=== PATIENT | male | born 1945 | race Caucasian/White ===

== ENCOUNTER 2016-10-25 10:04 | Emergency (ER) | payer MEDICARE ==
[~2016-10-25] VITALS: Ht 182.9 cm; Wt 79.5 kg
[2016-10-25 10:08] VITALS: BP 134/82; PULSE 71; RESP 18; O2SAT 97
--- NOTE | 2016-10-25 10:15 | ED.REPORT ---
HPI-General Illness Date of Service Oct 25, 2016 ED Provider: Shagufta Maldonado MD The patient is a 70 yo male who presents w/ left arm swelling onset one month ago. Symptoms began as a dark spot on his arm which erupted into fluid filled blisters that are weeping on their own. He went to on Sunday and was given Clindamycin, which makes him feel nauseous. His symptoms worsened after taking Clindamycin this morning. The rash has increased in severity and continues to spread. Blisters are now appearing over the right shoulder and arm. He also complains of his scrotum swelling. He denies fever, chills, nausea, vomiting, diarrhea. Nursing Notes Stated Complaint: LEFT ARM NUMBNESS/SWOLLEN Chief Complaint: General Complaint Nursing Notes Reviewed: Yes Allergies: Coded Allergies: Penicillins (Verified Allergy, Severe, Rash,Itching,, 10/25/16) Sulfa (Sulfonamide Antibiotics) (Verified Allergy, Severe, Rash, 10/25/16) erythromycin base (Verified Allergy, Severe, Rash,Itching,, 10/25/16) clindamycin (Verified Allergy, Intermediate, rash, 10/25/16) Scheduled Cephalexin (Keflex) 750 Mg Capsule 750 MG PO TID General Time Seen by MD: 10:15 Chief Complaint Rash Hx Obtained From: Patient Arrived By: Walk-in Sudden in Onset?: Yes Onset Occurred: 5 - 8 hours ago Context of Onset: Medication reaction Symptom Duration: Since onset Severity: Current: No pain currently Recent Healthcare: No recent doctor visit, No recent hospitalization Similar Sx Previous: No Past Medical History Past Medical History denies Past Surgical History denies Smoking History Unknown if Ever Smoker Social History Other Social History: Local resident Ambulatory Status Independent Review of Systems Full Review of Systems Constitutional: Denies: Chills, Fever GI: Reports: Nausea, Denies: Diarrhea, Vomiting Skin: Reports Rash Allergy / Immune: Reports: Allergic reaction, Itching Complete sys rev & neg: except as marked. Physical Exam Vital Signs Vital Signs Date Time Temp Pulse Resp B/P Pulse Ox O2 Delivery O2 Flow Rate FiO2 10/25/16 10:08 36.0 71 18 134/82 97 Initial VS: Reviewed Head / Eyes: Atraumatic, Normocephalic, PERRL ENT: Mucous membranes moist, Conjunctiva normal, No scleral icterus Respiratory: Breath sounds normal, Clear to auscultation, No respiratory distress Cardiovascular: Regular rate & rhythm, Heart sounds normal, Intact distal pulses Abdomen / GI: Soft, Non-tender, No guarding, No rebound, No distention Psychiatric: Mood/affect normal, Behavior normal, Normal thought content General/Constitutional: Awake, Alert, No acute distress, Cooperative, Not toxic appearing Head / Eyes: Atraumatic, Normocephalic, PERRL, EOMI Lymphatic: No gross adenopathy, No cervical adenopathy, No axillary adenopathy no masses or inguinal adenopathy Upper Extremities Left Upper Arm: Positive: Swelling present... (Moderate) swelling and erythema to left forearm 2nd developing rash over upper chest and shoulders - looks more like an allergic rxn vesicular areas over forearm that look like an infection Testes / Epidid / Scrotum: Positive: Scrotum swollen edema in skin of scrotum w/out any pain, tenderness, or testicular masses Interpretation & Diagnostics Lab Results Interpretation Result Diagram: 10/25/16 1111 10/25/16 1111 Test 10/25/16 11:11 White Blood Count 5.1th/mm3 (3.8-10.1) Red Blood Count 4.69mil/mm3 (4.40-5.80) Hemoglobin 15.6g/dL (13.8-17.2) Hematocrit 44.8% (41.0-50.0) Mean Corpuscular Volume 95.5fL (81-100) Mean Corpuscular Hemoglobin 33.3pg (27.0-35.0) Mean Corpuscular Hemoglobin Concent 34.8% (32.0-37.0) Red Cell Distribution Width 12.2% (12.3-15.4) Platelet Count 195bil/L (150-400) Neutrophils (%) (Auto) 61.5% (40-74) Lymphocytes (%) (Auto) 20.6% (14-46) Monocytes (%) (Auto) 10.0% (4-12) Eosinophils (%) (Auto) 6.7% (0-5) Basophils (%) (Auto) 0.6% (0-3) Sodium Level 132mEq/L (134-144) Potassium Level 4.1mEq/L (3.5-5.2) Chloride Level 96mEq/L (97-108) Carbon Dioxide Level 24mmol/L (18-29) Blood Urea Nitrogen 9mg/dL (8-27) Creatinine 0.55mg/dL (0.76-1.27) Estimat Glomerular Filtration Rate 157mL/min (>59) Glucose Level 105mg/dL (60-99) Lactic Acid Level 0.9mmol/L (0.4-2.0) Calcium Level 9.0mg/dL (8.5-10.1) Total Bilirubin 0.8mg/dL (0.0-1.2) Aspartate Amino Transf (AST/SGOT) 45U/L (0-50) Alanine Aminotransferase (ALT/SGPT) 30U/L (0-44) Alkaline Phosphatase 47U/L (25-160) Total Protein 7.3g/dL (6.4-8.4) Albumin 4.6g/dL (3.4-5.0) Re-Eval/Medical Decision Time of Eval: 12:17 Patient Status: Condition improved Re-Evaluation/Progress Note: Pt rechecked. Treatment plan discussed. F/U and RTER warnings given. Pt understands and agrees with plan. Counseled Regarding: Diagnosis, Lab results, Need for follow-up, When/why to return to ED Discharge & Departure Primary Impression: Left arm cellulitis Additional Impression: Allergic reaction to drug Disposition: Home Discharge Condition All VS Reviewed: Yes Condition: Stable Additional Instructions: You have a cellulitis of the left arm that does not seem to be responding to clindamycin. Your labs are reassuring today. You were given 2 gm of IV ceftriaxone in the ER today and I would like you to have another 2mg of IV ceftriaxone tomorrow as well. Please come back tomorrow morning before 3pm. You also seem to be developing an allergy to clindamycin. I've given you a dose of steroids in the ER to help with the rash. Please stop taking this. If you are itchy and having trouble sleeping, try 1-2 Benadryl. You will need continued antibiotics and I will choose Keflex as you are allergic to sulfa, penicillins and now the clindamycin. I will see you tomorrow. Hope your show goes well tonight. Scribe Attestation Portion of this note were transcribed by Donna Baum. I, Dr. Maldonado, personally performed the history, physical exam, and medical decision-making: I reviewed and confirmed the accuracy for the information in the transcribed note. Signed by: flip Song, 10/25/16 Shagufta Iqbal MD Oct 25, 2016 10:15 Donna Baum Oct 25, 2016 12:55
[2016-10-25 11:31] LABS: BASOPHILS % (AUTO) 0.6 % (0-3); EOSINOPHILS % (AUTO) 6.7 % (0-5); Mean Corpuscular Hemoglobin 33.3 pg (27.0-35.0); Mean Corpuscular Volume 95.5 fL (81-100); NEUTROPHILS % (AUTO) 61.5 % (40-74); Platelet Count 195 bil/L (150-400)
[2016-10-25] MEDS ORDERED: cefTRIAXone Inj 2,000 MG in Dextrose 5% Minibag Plus 50 ML IV ONE (11:45)
[2016-10-25] MEDS ORDERED: MethylprednisoLONE Sodium Succinate 62.5 mg/mL 2 mL Inj IVPUSH ONE (11:45)
[2016-10-25] MEDS ORDERED: CEPH750C9 PO (12:55)
[2016-10-25 13:17] VITALS: BP 119/84; PULSE 68; RESP 16; O2SAT 98
[2016-10-25 13:26] VITALS: BP 119/84; PULSE 68; RESP 16; O2SAT 98
[2016-10-26] MEDS ORDERED: CEPH750C9 PO (14:44)
== END 2016-10-25 13:27 | disposition home or self-care (01) ==
LOC: SED 10:04
DX: L03.114 Cellulitis of left upper limb (principal); T36.8X5A Adverse effect of other systemic antibiotics, initial encounter; X58.XXXA Exposure to other specified factors, initial encounter; Y93.89 Activity, other specified; Y92.9 Unspecified place or not applicable; Y99.8 Other external cause status; Z88.0 Allergy status to penicillin; Z88.1 Allergy status to other antibiotic agents; Z88.2 Allergy status to sulfonamides; Z88.8 Allergy status to other drugs, medicaments and biological substances
CPT/HCPCS: 36415; 80053; 83605; 85025; 87040; 96365; 96375; 99284; J0696; J2930

== ENCOUNTER 2016-10-26 12:31 | Emergency (ER) | payer MEDICARE ==
[~2016-10-26] VITALS: Ht 182.9 cm; Wt 88.0 kg
[~2016-10-26 12:31] MED LIST: CEPH750C9 PO
[2016-10-26 12:36] VITALS: BP 125/77; PULSE 73; RESP 16; O2SAT 97
--- NOTE | 2016-10-26 12:45 | ED.REPORT ---
HPI-Recheck W/B/S Date of Service Oct 26, 2016 ED Provider: The patient is a 71 year old male who presents to the emergency department today for IV antibiotics He was seen in the ED yesterday for left arm cellulitis and he received 1 dose of IV ceftriaxone and was discharged home of Keflex. He was recommended to return today to have an additional dose of ceftriaxone. His symptoms have improved since yesterday. He denies any new symptoms, including: fever, chills, vomiting. Nursing Notes Stated Complaint: IV FLUIDS Chief Complaint: Wound Recheck/Suture Removal Nursing Notes Reviewed: Yes Allergies: Coded Allergies: Penicillins (Verified Allergy, Severe, Rash,Itching,, 10/25/16) Sulfa (Sulfonamide Antibiotics) (Verified Allergy, Severe, Rash, 10/25/16) erythromycin base (Verified Allergy, Severe, Rash,Itching,, 10/25/16) clindamycin (Verified Allergy, Intermediate, rash, 10/25/16) Scheduled Cephalexin (Keflex) 750 Mg Capsule 750 MG PO TID General Time Seen by Provider: 12:51 Chief Complaint Wound check, Other (IV antibiotics) Wound / Injury Type: Cellulitis Hx Obtained From: Patient Arrived By: Walk-in Onset Occurred: More than a week ago... Symptom Duration: Since onset Progression Since Onset: Constant Quality: Painful Severity: Current: Mild Severity: Maximum: Mild Pertinent Negative: Pt denies other symptoms Recent Healthcare: No recent hospitalization, Recent doctor visit Similar Sx Previous: Yes Past Medical History Past Medical History denies Past Surgical History denies Family History Noncontributory Smoking History Unknown if Ever Smoker Social History Other Social History: Local resident Ambulatory Status Independent Review of Systems Constitutional: Denies: Chills, Fever Skin: Reports Rash Complete sys rev & neg: except as marked. GI: Denies: Vomiting Musculoskeletal: Reports: Extremity pain Physical Exam Initial Vital Signs Vital Signs (First) Date Time Temp Pulse Resp B/P Pulse Ox O2 Delivery O2 Flow Rate FiO2 10/26/16 12:36 36.2 73 16 125/77 97 Room Air Initial VS: Reviewed Head / Eyes: Atraumatic, Normocephalic, PERRL ENT: Mucous membranes moist, Conjunctiva normal, No scleral icterus Neck: Supple, Non-tender, Full range of motion Respiratory: No respiratory distress Lymphatic: No lymphadenopathy Extremities: Vascular intact, Neuro intact, No swelling, No tenderness Neurologic: Alert, Oriented, Nonfocal Psychiatric: Mood/affect normal, Behavior normal, Normal thought content Skin: Warm, Dry Rash / Lesion Notes: Left arm cellulitis is improved. There is erythema from his mid upper arm to his mid forearm. The remainder of the rash has improved. General/Constitutional: Awake, Cooperative Re-Eval/Medical Decision Source of Hx: Old records Re-Evaluation/Progress : Time of Eval: 14:00 Re-Evaluation/Progress Note: Rechecked the patient. His antibiotics are complete. Discussed plan for discharge. RTER warnings were given. Counseled Regarding: Diagnosis, Need for follow-up, When/why to return to ED Discharge & Departure Impression: Primary Impression: Cellulitis of arm, left Disposition: Home Discharge Condition All VS Reviewed: Yes Condition: Stable Additional Instructions: Thank you for entrusting us with your care today. We removed your IV today and re-examined your arm. We want you to fill your antibiotic prescription for Keflex. Please do not hesitate to return to the Emergency Department or contact your Primary Care Physician (PCP) if your arm becomes more red, more swollen, produces more blisters, or begins to lose sensation and mobility. We encourage you to make an appt. with your PCP within a week for follow-up care regarding your condition. Referrals: [facility] (PCP) Scribe Attestation Portions of this note were transcribed by Darling Hebert. I, Dr. Malodnado personally performed the history, physical exam and medical decision-making; I reviewed and confirmed the accuracy of the information in the transcribed note. Signed by: Rita Cardoza, 10/26/2016 at 1415. Shagufta Maldonado MD Oct 26, 2016 12:45 Darling Hebert Oct 26, 2016 12:51
[2016-10-26] MEDS ORDERED: cefTRIAXone Inj 2,000 MG in Dextrose 5% Minibag Plus 50 ML IV ONE (13:05)
[2016-10-26] MEDS ORDERED: CEPH750C9 PO (14:44)
[2016-10-26 14:50] VITALS: BP 128/74; PULSE 73; RESP 20; O2SAT 96
[2016-10-27] MEDS ORDERED: PYR50 PO (18:44)
[2016-10-27] MEDS ORDERED: ASCO100089 PO (18:44)
== END 2016-10-26 14:51 | disposition home or self-care (01) ==
LOC: SED 12:31
DX: L03.114 Cellulitis of left upper limb (principal); Z88.0 Allergy status to penicillin; Z88.1 Allergy status to other antibiotic agents; Z88.2 Allergy status to sulfonamides
CPT/HCPCS: 96365; 99284; J0696

== ENCOUNTER 2016-10-27 14:09 | Inpatient (IN) | payer MEDICARE ==
[~2016-10-27] VITALS: Ht 182.9 cm; Wt 86.0 kg
[2016-10-27 14:39] VITALS: BP 117/73; PULSE 71; RESP 16; O2SAT 98
[2016-10-27] MEDS ORDERED: 0.9% Sodium Chloride 1,000 ML IV ONE (16:52)
[2016-10-27] MEDS ORDERED: cefTRIAXone Inj 2,000 MG in Dextrose 5% 50 ML IV STA (16:52)
--- NOTE | 2016-10-27 16:52 | ED.REPORT ---
HPI-Rash / Abscess Date of Service Oct 27, 2016 ED Provider: Buck Hopkins MD The patient is a 71 year old male who has recently been seen in the emergency department twice for cellulitis of his left upper extremity. He was previously treated with one dose of IV ceftriaxone and discharged on Keflex. He was seen again yesterday and was given an additional dose of IV ceftriaxone and his symptoms were noted to be improved. He presents again today because his left arm feels "tighter" and "hotter." Last night he noticed chills, shakiness, and had a few episodes of diarrhea. Due to these symptoms he stopped taking the Keflex. He denies fever or vomiting. Nursing Notes Stated Complaint: CELLULITIS Chief Complaint: Extremity Trauma Nursing Notes Reviewed: Yes Allergies: Coded Allergies: Penicillins (Verified Allergy, Severe, Rash,Itching,, 10/27/16) Sulfa (Sulfonamide Antibiotics) (Verified Allergy, Severe, Rash, 10/27/16) erythromycin base (Verified Allergy, Severe, Rash,Itching,, 10/27/16) clindamycin (Verified Allergy, Intermediate, rash, 10/27/16) Scheduled Ascorbic Acid (Vitamin C) 1,000 Mg Tab.chew 4,000-5,000 MG PO DAILY Cephalexin (Keflex) 750 Mg Capsule 750 MG PO TID Pyridoxine (Vitamin B-6) 50 Mg Tablet 50 MG PO DAILY General Time Seen by MD: 16:49 Chief Complaint Rash Hx Obtained From: Patient Arrived By: Walk-in Onset Occurred: 1 week ago Symptom Duration: Since onset Location: : Arm Quality: Painful Severity: Current: Mild Severity: Maximum: Moderate Pertinent Negative: Pt denies other symptoms Recent Healthcare: No recent hospitalization, Recent doctor visit Similar Sx Previous: Yes Past Medical History Past Medical History denies Past Surgical History denies Family History Noncontributory Smoking History Unknown if Ever Smoker Social History Other Social History: Local resident Ambulatory Status Independent Review of Systems Constitutional: Reports: Chills, Denies: Fever GI: Reports: Diarrhea, Denies: Vomiting Musculoskeletal: Reports: Extremity pain Skin: Reports Rash, Reports Swelling Complete sys rev & neg: except as marked. Neurologic: Reports: Shaking Physical Exam Initial Vital Signs Vital Signs (First) Date Time Temp Pulse Resp B/P Pulse Ox O2 Delivery O2 Flow Rate FiO2 10/27/16 14:39 36.0 71 16 117/73 98 Room Air Initial VS: Reviewed Head / Eyes: Atraumatic, Normocephalic, PERRL ENT: Mucous membranes moist, Conjunctiva normal, No scleral icterus Neck: Supple, Non-tender, Full range of motion Respiratory: Breath sounds normal, Clear to auscultation, No respiratory distress Cardiovascular: Regular rate & rhythm, Heart sounds normal, Intact distal pulses Abdomen / GI: Soft, Non-tender, No guarding, No rebound, No distention Lymphatic: No lymphadenopathy Extremities: Vascular intact, Neuro intact, No swelling, No tenderness Neurologic: Alert, Oriented, Nonfocal Psychiatric: Mood/affect normal, Behavior normal, Normal thought content General/Constitutional: Awake, Alert, Cooperative Skin: Warm, Dry Rash / Lesion Notes: There is erythema and induration with overlying crusting scab material starting at the region of his left wrist and extending proximally all the way up to his shoulder and scapular region. It has been circumscribed however the erythema is extending past the circumscribed area across his back. Interpretation & Diagnostics Lab Results Interpretation Result Diagram: 10/27/16 1655 10/27/16 1655 Test 10/27/16 16:55 10/27/16 17:25 10/27/16 18:48 White Blood Count 5.6th/mm3 (3.8-10.1) Red Blood Count 4.44mil/mm3 (4.40-5.80) Hemoglobin 14.7g/dL (13.8-17.2) Hematocrit 43.0% (41.0-50.0) Mean Corpuscular Volume 96.8fL (81-100) Mean Corpuscular Hemoglobin 33.1pg (27.0-35.0) Mean Corpuscular Hemoglobin Concent 34.2% (32.0-37.0) Red Cell Distribution Width 12.4% (12.3-15.4) Platelet Count 189bil/L (150-400) Neutrophils (%) (Auto) 52.1% (40-74) Lymphocytes (%) (Auto) 25.3% (14-46) Monocytes (%) (Auto) 12.1% (4-12) Eosinophils (%) (Auto) 9.6% (0-5) Basophils (%) (Auto) 0.5% (0-3) Sodium Level 132mEq/L (134-144) Potassium Level 4.1mEq/L (3.5-5.2) Chloride Level 97mEq/L (97-108) Carbon Dioxide Level 23mmol/L (18-29) Blood Urea Nitrogen 11mg/dL (8-27) Creatinine 0.60mg/dL (0.76-1.27) Estimat Glomerular Filtration Rate 142mL/min (>59) Glucose Level 106mg/dL (60-99) Lactic Acid Level 1.1mmol/L (0.4-2.0) Calcium Level 8.9mg/dL (8.5-10.1) Total Bilirubin 0.5mg/dL (0.0-1.2) Aspartate Amino Transf (AST/SGOT) 45U/L (0-50) Alanine Aminotransferase (ALT/SGPT) 34U/L (0-44) Alkaline Phosphatase 43U/L (25-160) Total Protein 7.0g/dL (6.4-8.4) Albumin 4.0g/dL (3.4-5.0) Hold Blue Top Tube Received (Received) Urine Color Yellow (YELLOW) Urine Appearance Clear (CLEAR,HAZY) Urine pH 6.5 (5.0-8.0) Urine Specific Dawson 1.010 (1.003-1.035) Urine Protein Negativemg/dL (NEG,TRACE) Urine Glucose (UA) Negativemg/dL (NEGATIVE) Urine Ketones Negativemg/dL (NEGATIVE) Urine Occult Blood Negative (NEGATIVE) Urine Nitrite Negative (NEGATIVE) Urine Bilirubin Negative (NEGATIVE) Urine Urobilinogen Normalmg/dL (NORMAL) Urine Leukocyte Esterase Negative (NEGATIVE) Urine RBC 0-2/hpf (0-2) Urine WBC 0-5/hpf (0-5) Urine Epithelial Cells Occasional/hpf (NONE-MOD) Urine Crystals None seen (NONE SEEN) Urine Bacteria None/hpf (NONE-FEW) Urine Hyaline Casts None/lpf (NONE) Urine Granular Casts None seen (NONE SEEN) Urine Waxy Casts None seen (NONE SEEN) Urine Red Blood Cell Casts None seen (NONE SEEN) Urine White Blood Cell Casts None seen (NONE SEEN) Urine Mucus None seen (None Seen) Urine Trichomonas None seen (NONE SEEN) Urine Yeast None (NONE SEEN) Urinalysis Comment None Urine Culture Reflexed Not indicated X-Ray Chest Interpretation Chest Xray Interpretation: IMPRESSION: No acute cardiopulmonary findings. Dictated by: Nadiya Lind M.D. on 10/27/2016 at 17:23 Interpretation / Wet Read by: Interpret - Radiologist Re-Eval/Medical Decision Med Decision/Clinical Course The patient is a 71 year old male who has recently been seen in the emergency department twice for cellulitis of his left upper extremity. He was previously treated with one dose of IV ceftriaxone and discharged on Keflex. He was seen again yesterday and was given an additional dose of IV ceftriaxone and his symptoms were noted to be improved. He presents again today because his left arm feels "tighter" and "hotter." Last night he noticed chills, shakiness, and had a few episodes of diarrhea. Due to these symptoms he stopped taking the Keflex. He denies fever or vomiting. Examination reveals significant cellulitis involving the entire left upper extremity extending onto the shoulder and back where it is extending beyond the previously circumscribed borders. The patient is nontoxic in appearance and hemodynamically stable. IV access was obtained and blood cultures were sent. Treated with ceftriaxone and vancomycin. LABS: no leukocytosis with a WBC of 5.6, stable hematocrit of 43.0, Na of 132, BUN 11, creatinine of 0.60, glucose of 106, lactic acid of 1.1, stable transaminases. Normal CXR Patient is nontoxic in appearance at this time though with significant cellulitis involving the entire left upper extremity. At this point he is failed outpatient management with oral antibiotics and has had multiple repeat visits for doses of IV antibiotics. Given somewhat purulent appearance of a cellulitis I have broadened with addition of vancomycin. Blood cultures obtained and sent. Patient was discussed with admitting hospitalist and transferred in stable condition. Source of Hx: Old records Re-Evaluation/Progress : Time of Eval: 17:14 Re-Evaluation/Progress Note: Discussed plan for admission. All questions were addressed. Consultation : Referral / Consult Name: Clarence Douglas MD Consulted With: Hospitalist Requested Call at: 17:14 Call Returned at: 17:45 [employer]: Will see patient, Agrees with eval, Agrees with plan, Accepts admit Counseled Regarding: Diagnosis, Lab results, Need for admission Discharge & Departure Impression: Primary Impression: Cellulitis of arm, left Additional Impression: Rigors Disposition: ADMITTED TO HOSPITAL Discharge Condition All VS Reviewed: Yes Condition: Stable Referrals: [facility] (PCP) [place] Attestation Portions of this note were transcribed by Darling Hebert. I, Dr. Hopkins personally performed the history, physical exam and medical decision-making; I reviewed and confirmed the accuracy of the information in the transcribed note. Signed by: Rita Cardoza, 10/27/2016 and Buck Flores MD Oct 27, 2016 16:52 Darling Hebert Oct 27, 2016 17:14
[2016-10-27] MEDS ORDERED: Vancomycin Dose per Pharmacist XX ONE (16:55)
[2016-10-27 17:13] LABS: BASOPHILS % (AUTO) 0.5 % (0-3); EOSINOPHILS % (AUTO) 9.6 % (0-5); MONOCYTES % (AUTO) 12.1 % (4-12); Mean Corpuscular Hemoglobin 33.1 pg (27.0-35.0); Mean Corpuscular Volume 96.8 fL (81-100); NEUTROPHILS % (AUTO) 52.1 % (40-74); Platelet Count 189 bil/L (150-400)
[2016-10-27] MEDS ORDERED: Ondansetron 2 mg/mL 2 mL Inj IVPUSH PRN (17:15)
[2016-10-27] MEDS ORDERED: Alum-Mag Hydrox-Simeth 30 mL Suspension PO PRN (17:15)
[2016-10-27] MEDS ORDERED: Vancomycin Inj 1,750 MG in 0.9% Sodium Chloride 500 ML IV ONE (17:20)
--- NOTE | 2016-10-27 17:26 | DRSVH ---
PROCEDURE: X-RAY CHEST ONE VIEW, PORTABLE ([id number]) INDICATIONS: SHORT OF BREATH TECHNIQUE: One view of the chest was acquired. COMPARISON: None. FINDINGS: Surgical changes and devices: None. Lungs and pleura: No pleural effusions or pneumothorax. Lungs are clear. Mediastinum: Mediastinal contours appear normal. Heart size is normal. Bones and chest wall: No suspicious bony lesions. Overlying soft tissues appear unremarkable. IMPRESSION: No acute cardiopulmonary findings. Dictated by: Nadiya Lind M.D. on 10/27/2016 at 17:23 Approved by: Nadiya Lind M.D. on 10/27/2016 at 17:24
[2016-10-27 17:45] VITALS: BP 119/79; PULSE 64; RESP 18; O2SAT 97
[2016-10-27] MEDS ORDERED: Polyethylene Glycol (PEG) 17 Gm Powder PO PRN (18:25)
[2016-10-27] MEDS: Vancomycin Dose per Pharmacist XX SCH (18:25)
[2016-10-27] MEDS ORDERED: ASCO100089 PO (18:44)
[2016-10-27] MEDS ORDERED: PYR50 PO (18:44)
[2016-10-27 19:09] LABS: APPEARANCE,URINE CLEAR (CLEAR,HAZY); COLOR,URINE YELLOW (YELLOW); OCCULT BLOOD,URINE NEGATIVE (NEGATIVE); PH,URINE 6.5 (5.0-8.0); UROBILINOGEN,URINE NORMAL (NORMAL)
[2016-10-27 20:20] VITALS: BP 131/78; PULSE 70; RESP 20; O2SAT 99
--- NOTE | 2016-10-27 21:07 | PCM.HPMED ---
Subjective Date of Service Oct 27, 2016 Primary Provider: Admitting Physician: Clarence Douglas MD [facility]: Clarence Douglas MD Chief Complaint: Left forearm/arm swelling and pain/5 days Diarrhea/1 day History of Present Illness: 71-year-old gentleman with no significant past medical history came to emergency room due to progressively worsening left upper extremity painful swelling and redness of which started on Sunday. Pain, redness and swelling started on left elbow area and progressively worsened and involved forearm thru wrist and progressed up to shoulder and scapular area. He was initially seen on Sunday at urgent clinic and was prescribed ? clindamycin and borders of cellulitis marked . Area of cellulitis continues to expand which prompted ED visit on Sunday. He was given IV ceftriaxone and prescribed Keflex. He states he could not tolerate Keflex and area of cellulitis continued to progress beyond marked borders which prompted ED visit today. Denies fever. Denies trauma. He is not sure if he had itching. He had 3 episodes of watery diarrhea yesterday. Denies abdominal pain or vomiting ED course: Unremarkable vitals. Left upper extremity cellulitis. Labs unremarkable. IV vancomycin and ceftriaxone started. Hospitalist service requested for admission for cellulitis, failed outpatient treatment. Review of Systems: Comprehensive review of systems performed. 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 patient is lying comfortably in hospital bed HEENT: Head is normocephalic atraumatic, Pupils equal and reactive, extraocular movements intact, Lungs clear to auscultation bilaterally Heart regular rate and rhythm without murmurs gallops or rubs Abdomen soft nontender without hepatosplenomegaly Extremities right upper extremity swollen, erythematous, slightly tender with scaly dry overlying skin. Erythema extends from left wrist to mid arm, also extend to area of left scapula,borders marked Psych alert and oriented to person place and time Neuro cranial nerves II through XII are grossly intact Lymph: There is no lymphadenopathy appreciated in the cervical supra infraclavicular regions : no jara Lab and Diagnostics Result Diagram: 10/27/16165410/27/161654 X-Rays, CTs and MRIs PROCEDURE: X-RAY CHEST ONE VIEW, PORTABLE ([id number]) INDICATIONS: SHORT OF BREATH TECHNIQUE: One view of the chest was acquired. COMPARISON: None. FINDINGS: Surgical changes and devices: None. Lungs and pleura: No pleural effusions or pneumothorax. Lungs are clear. Mediastinum: Mediastinal contours appear normal. Heart size is normal. Bones and chest wall: No suspicious bony lesions. Overlying soft tissues appear unremarkable. IMPRESSION: No acute cardiopulmonary findings. Dictated by: Nadiya Lind M.D. on 10/27/2016 at 17:23 Assessment & Plan 71-year-old gentleman with no significant past medical history came to emergency room due to progressively worsening left upper extremity painful swelling and redness of which started on Sunday # Left upper extremity cellulitis,acute,poa -Nontoxic, Failed outpatient treatment -Started on IV vancomycin and ceftriaxone in ED,will continue with that -Blood culture pending # Episodes of watery diarrhea,acute,poa -C. difficile pcr requested given recent antibiotic use -Contact isolation until stool test - will hold off empiric treatment Full code,discussed with patient copies to: [facility] Clarence Douglas MD Oct 27, 2016 21:07
--- NOTE | 2016-10-27 23:57 | PCM.PHAPRO ---
Progress Date of Service: Oct 27, 2016 Left forearm/arm swelling and pain/5 days Diarrhea/1 day Vancomycin Management per Pharmacy: Indication: Cellulitis of L arm in patient who failed oral cephalexin and oral/ topical clindamycin Age: 71 yo Weight: 86 kg Labs: WBC: 5.6 SrCr: 0.6 mg/dL Est CrCl: ~110 mL/min Vitals: All stable/WNL Additional Abx: Rocephin Nephrotoxic Risks: None Recommendation: Load: Vancomycin 1750 mg IV x 1 Maintenance: Vancomycin 1500 mg IV Q12h (~17 mg/kg), slightly higher than 15 mg /kg as pt is muscular well nourished healthy gentleman with no nephrotoxic risks Trough: Draw on 10/29 @ 1700 prior to 4th maintenance dose Pharmacy to continue to monitor per protocol Thank You, Lisa Venegas, Pharm D. Lisa Venegas Oct 27, 2016 23:57
[2016-10-28 00:40] VITALS: BP 131/74; PULSE 73; RESP 20; O2SAT 98
--- NOTE | 2016-10-28 01:13 | NUR ---
Admit Patient admitted to unit at 2009, Able to transfer independently to bed. Weight obtained via standing scale. Patient denies pain at this time. After being oriented to room, patient and guest had several questions about the expected length of stay,and the process of obtaining/culturing bacteria. The pt reported recent diarrhea and thus put on C.diff precautions per Dr. request until able to rule out.
[2016-10-28 05:10] VITALS: BP 121/75; PULSE 62; RESP 20; O2SAT 96
[2016-10-28] MEDS: Vancomycin Inj 1,500 MG in 0.9% Sodium Chloride 500 ML IV SCH ×2 (06:00→17:34)
[2016-10-28] MEDS: Vancomycin Dose per Pharmacist XX SCH (08:30)
--- NOTE | 2016-10-28 09:50 | NUR ---
Morning Rounds Staffed patient's case with Dr. Rich and case management. Dr. Rich stated patient will likely stay one more day. Dr. Rich stated PCR stool could be cancelled, as he visualized patient's formed, solid stool this morning.
[2016-10-28] MEDS: cefTRIAXone Inj 2,000 MG in Dextrose 5% Minibag Plus 50 ML IV SCH (11:47)
--- NOTE | 2016-10-28 12:19 | PCM.PNMED ---
Subjective Date of Service Oct 28, 2016 Subjective afebrile, HD stable, redness regressed on back from marked areas still painful and erythematous on RUE diarrhea stopped, noticed formed stools Exam Vital Signs Vital Sign - Last Date Time Temp Pulse Resp B/P Pulse Ox O2 Delivery O2 Flow Rate FiO2 10/28/16 05:10 36.6 62 20 121/75 96 Room Air Intake and Output 10/27/16 10/27/16 10/28/16 Cumulative From/Thru 15:00 23:00 07:00 10/27/16 14:39 - 10/27/16 20:23 Intake Total 1000 ml 1000 ml Balance 1000 ml 1000 ml IV Total 1000 ml 1000 ml Exam NAD, comfortably laying down on the bed no JVD, MMM, no LAD RRR, nl s1, s2 no mrg CTAB, no w,c S,ND,NT,normoactive BS+ warm, no edema, pulses 2/2 SKIN: multiple papules to pustules scattered more on LT arm distally, diffuse blenching erythema, mild tenderness several erythematous papules on Lt upper back, no erythema. IVs and Medications Medications Reviewed: Medications were reviewed in detail Lab and Diagnostics Result Diagram: 10/27/16165410/27/161654 X-Rays, CTs and MRIs PROCEDURE: X-RAY CHEST ONE VIEW, PORTABLE ([id number]) INDICATIONS: SHORT OF BREATH TECHNIQUE: One view of the chest was acquired. COMPARISON: None. FINDINGS: Surgical changes and devices: None. Lungs and pleura: No pleural effusions or pneumothorax. Lungs are clear. Mediastinum: Mediastinal contours appear normal. Heart size is normal. Bones and chest wall: No suspicious bony lesions. Overlying soft tissues appear unremarkable. IMPRESSION: No acute cardiopulmonary findings. Dictated by: Nadiya Lind M.D. on 10/27/2016 at 17:23 Assessment & Plan 71-year-old gentleman with no significant past medical history came to emergency room due to progressively worsening left upper extremity painful swelling and redness of which started on Sunday # Left upper extremity cellulitis,acute,poa, close to impetigo with pruritic multiple pustules, possible CA-MRSA infection given failure of OP tx with clindamycin, Keflex. no SIRS, afebrile, HD stable -responded well to current abx regimen, continue vanc, CFX iv for now, likely switch to MRSA covering oral agent-clindamycin, linezolid, if pt continues to do well tomorrow -awaits BCX culture, MRSA swab -will try to send culture from pustules today -benadryl oral, topical for pruritus # Episodes of watery diarrhea,acute,poa, initial concern was c.diff from multiple abx exposure. resolved today. dispo: likely 1-2more days diet: general Full code Time spent 35min Kimmy Rich MD Oct 28, 2016 12:19
--- NOTE | 2016-10-28 12:30 | NUR ---
Benadryl Patient stated his legs started to feel achy after taking Benadryl earlier this morning. I made Dr. Rich aware of patient's statement, Dr. Rich said not to give patient anymore Benadryl. Went to inform patient that MD is aware of how he felt after Benadryl, but patient was sleeping.
[2016-10-28 14:00] VITALS: BP 120/72; PULSE 73; RESP 18; O2SAT 96
--- NOTE | 2016-10-28 15:15 | NUR ---
Wound Culture Attempted to obtain sample for wound culture per order. Patient's left arm has several little pustules covering forearm, but most appear not to have burst, they appear intact. Swab pustules that appeared to have some drainage/weeping, but his may not have been a sufficient sample. Will need to obtain a more sufficient sample once assessed by wound care nurse or with MD. Did not attempt to cause pustule to burst as this may cause spread of any infection present.
[2016-10-28 20:29] VITALS: BP 101/67; PULSE 79; RESP 20; O2SAT 95
--- NOTE | 2016-10-29 04:20 | NUR ---
PSYCH; slept well this shift. No request for pain rx.
[2016-10-29 04:31] VITALS: BP 116/75; PULSE 70; RESP 18; O2SAT 95
[2016-10-29] MEDS: Vancomycin Inj 1,500 MG in 0.9% Sodium Chloride 500 ML IV SCH (05:24)
--- NOTE | 2016-10-29 05:30 | NUR ---
ITCHING; pt was given benadryl 25mg iv for itching left arm at approx. 0431- states didn't work very well. Message left on chart for dr. verónica anthony.
[2016-10-29 07:11] LABS: BASOPHILS % (AUTO) 1.3 % (0-3); EOSINOPHILS % (AUTO) 12.1 % (0-5); MONOCYTES % (AUTO) 10.8 % (4-12); Mean Corpuscular Volume 95.7 fL (81-100); NEUTROPHILS % (AUTO) 42.6 % (40-74); Platelet Count 192 bil/L (150-400)
[2016-10-29 07:47] VITALS: BP 120/72; PULSE 69; RESP 16; O2SAT 99
[2016-10-29] MEDS: cefTRIAXone Inj 2,000 MG in Dextrose 5% Minibag Plus 50 ML IV SCH (08:01)
[2016-10-29] MEDS: Vancomycin Dose per Pharmacist XX SCH (08:30)
[2016-10-29 08:34] LABS: Magnesium 2.1 mg/dL (1.6-2.6)
--- NOTE | 2016-10-29 09:54 | NUR ---
Social Work-initial assessment/ readiness for discharge: Data:See initial assessment. Pt is a 71 y/o male who was admitted on 10/27/16 for cellulitis per H&P. Pt's insurance is [facility] and PCP is karla. EMR reviewed. Pt's readmission score is 0. SW met with pt at bedside to discuss discharge planning, SW role explained. Pt is alert and oriented x3. Pt resides at home alone in [facility] where he remains independent with ADLs. Pt does not use any DME and drives. Pt has no HH or SNF history. Pt has no residential care or VA benefits. SW discussed pt's lack of supplemental insurance, pt states that he has had fine coverage and is not interested in any resources. Pt feels like he has enough help at home.SW discussed DPOA/advanced directive, pt states he has not completed this and is interested in the information, SW has provided this to pt. Pt anticipates to drive himself home at discharge. Pt continues to on IV abx, SW to follow for IV abx needs at discharge. SW provided phone number and plan on white board in room. SW will continue to follow. Assessment:Pt who is independent at baseline. Plan:Pt to discharge home when medically stable via POV. R/O IV abx needs at discharge. SW will continue to follow. SHERICE Díaz Addendum: 10/29/16 at 0958 by JOAQUIN WALL SS Amended: Links added.
[2016-10-29 12:30] VITALS: BP 127/74; PULSE 76; RESP 16; O2SAT 96
[2016-10-29] MEDS: Mupirocin 2% 22 Gm Ointment TOPICAL SCH ×2 (13:07→21:08)
--- NOTE | 2016-10-29 13:46 | NUR ---
AMBULATION/CELLULITES Patient has ambulated garcia 300ft x2 on RA denies shortness of breath. Left arm still red and swollen with small pustules, although patient states "It is much better". New Rx of topical Mupirocin applied to left arm,shoulder and arm pit. VSS, ongoing antibiotic Tx, teaching done on probiotics, patient denies diarrhea, showered today, s/l when not getting IV antibiotics. Patient has good oral intake. Would cultures pending and patient put on contact precautions until results finalized.
--- NOTE | 2016-10-29 14:49 | PCM.PNMED ---
Subjective Date of Service Oct 29, 2016 Subjective Patient was seen and examined at bedside today. Patient denies any chest pain, shortness of breath, nausea, vomiting, diarrhea. Patient states that his left forearm swelling, irritation, and pain have improved significantly. Exam Vital Signs Vital Sign - Last Date Time Temp Pulse Resp B/P Pulse Ox O2 Delivery O2 Flow Rate FiO2 10/29/16 12:30 36.6 76 16 127/74 96 Room Air Intake and Output 10/28/16 10/28/16 10/29/16 Cumulative From/Thru 14:59 22:59 06:59 10/27/16 14:39 - 10/29/16 06:51 Intake Total 1200 ml 1281 ml 1939 ml 5420 ml Output Total 1400 ml 1500 ml 1625 ml 4525 ml Balance -200 ml -219 ml 314 ml 895 ml Intake Oral 1200 ml 1000 ml 1400 ml 3600 ml IV Total 281 ml 539 ml 1820 ml Output Urine Total 1400 ml 1500 ml 1625 ml 4525 ml # Voids 4 5 9 # Bowel Movements 0 1 1 2 Exam Physical Exam: GEN: Patient was awake, alert, responding appropriately to questions HEENT: PERRLA, EOMI, Neck soft supple, trachea midline, nomocephalic/atraumatic CV: +S1/S2, RRR, no murmur auscultated Respiratory: CTAB, no wheezes, rales, rhonchi GI: +bowel sounds x4, soft, compressible, non TTP EXT: no c/c/e the lower extremities bilaterally, left upper extremity minimal edema, positive excoriations and scaling on the left forearm Neuro: CN II-XII grossly intact Psych: mood and affect were appropriate IVs and Medications Medications Reviewed: Medications were reviewed in detail Lab and Diagnostics Result Diagram: 10/29/1662410/29/16624 X-Rays, CTs and MRIs PROCEDURE: X-RAY CHEST ONE VIEW, PORTABLE ([id number]) INDICATIONS: SHORT OF BREATH TECHNIQUE: One view of the chest was acquired. COMPARISON: None. FINDINGS: Surgical changes and devices: None. Lungs and pleura: No pleural effusions or pneumothorax. Lungs are clear. Mediastinum: Mediastinal contours appear normal. Heart size is normal. Bones and chest wall: No suspicious bony lesions. Overlying soft tissues appear unremarkable. IMPRESSION: No acute cardiopulmonary findings. Dictated by: Nadiya Lind M.D. on 10/27/2016 at 17:23 Assessment & Plan 71-year-old gentleman with no significant past medical history came to emergency room due to progressively worsening left upper extremity painful swelling and redness of which started on Sunday Left upper extremity cellulitis -Patient seems to be responding to IV vancomycin and ceftriaxone, will consider switching the patient to oral antibiotics clindamycin (if patient is MRSA positive) and linezolid tomorrow -Blood cultures negative 24 hours -Gram stain of the abscess negative -Continue Benadryl for pruritus -Restart Bactroban cream Episodes of watery diarrhea,acute,poa, -Initial concern was c.diff from multiple abx exposure. resolved yesterday patient continues to have no more episodes dispo: likely 1-2more days pending culture sensitivities diet: general Full code Time spent Greater than 35 minutes Peg Mercado DO Oct 29, 2016 14:49
--- NOTE | 2016-10-29 14:55 | NUR ---
HENRY Signed SHERICE Sanchez
[2016-10-29 16:45] VITALS: BP 129/80; PULSE 86; RESP 16; O2SAT 97
[2016-10-29] MEDS ORDERED: Vancomycin Serum Trough XX ONE (17:00)
[2016-10-29] MEDS: Vancomycin Inj 1,750 MG in 0.9% Sodium Chloride 500 ML IV SCH (18:11)
--- NOTE | 2016-10-29 19:21 | PCM.PHAPRO ---
Progress Date of Service: Oct 29, 2016 Vancomycin Management per Pharmacy: Indication: Cellulitis of L arm in patient who failed oral cephalexin and oral/ topical clindamycin Est CrCl: ~110 mL/min Additional Abx: CEFTRIAXONE Recommendation: Load: Vancomycin 1750 mg IV x 1 Maintenance: Vancomycin 1500 mg IV Q12h (~17 mg/kg), slightly higher than 15 mg /kg as pt is muscular well nourished healthy gentleman with no nephrotoxic risks which produced a trough of 9.2. Since trough was drawn prior to 5th dose not 4th dose I feel it is an adequate representation of steady state so will increase patients dose to 1750 mg q12h to get closer to trough range of 10-15. Trough: Draw on 10/31 @ 1530 prior to 4th dose Pharmacy to continue to monitor per protocol Thank You, Bernadette Billingsley PharmD Oct 29, 2016 19:21
[2016-10-29 20:38] VITALS: BP 122/76; RESP 16; O2SAT 99
--- NOTE | 2016-10-30 04:10 | NUR ---
ITCHING; pt states cream eases itching and that he can tell his arm is improving. Awake puttering around in his room off and on tonight. No request for pain rx.
[2016-10-30] MEDS: Vancomycin Inj 1,750 MG in 0.9% Sodium Chloride 500 ML IV SCH (05:09)
[2016-10-30 05:29] VITALS: BP 122/70; PULSE 62; RESP 16; O2SAT 96
[2016-10-30 06:48] LABS: Mean Corpuscular Hemoglobin 32.5 pg (27.0-35.0); Mean Corpuscular Volume 95.1 fL (81-100)
[2016-10-30] MEDS: cefTRIAXone Inj 2,000 MG in Dextrose 5% Minibag Plus 50 ML IV SCH (08:09)
[2016-10-30] MEDS: Vancomycin Dose per Pharmacist XX SCH (08:30)
[2016-10-30] MEDS: Mupirocin 2% 22 Gm Ointment TOPICAL SCH ×2 (10:09→20:56)
--- NOTE | 2016-10-30 11:10 | NUR ---
Wound Care [facility] Patient see for evaluation of cellulitis to left upper extremity. Patient reports significant improvement since admitted to hospital. Redness to arm and left side of back has significantly improved from area marked. Patient noted with drying blisters to left forearm and scattered to upper arm and scapular area. Nursing applying Mupirocin twice daily which patient states "feels good". Patient does report itching to right scapula. Noted with several small intact pink bumps. Patient reports significant itching for 4 hours following IV vancomycin last night. Patient instructed to be aware of itching or rash and report to nurses due to history of multiple antibiotic allergies. Patient states he does not feel itching was allergy-related, rather "infection breaking down and leaving my body" and says he did not report itching to RN. Patient instructed itching could likely be associated with allergy to antibiotic and to notify nursing if any other itching develops. Patient states he will. RN notified of patients report of itching after vancomycin last night and states she will notify oncoming nurse to pre-medicate for possible allergy prior to administration tonight. No further wound care needs as cellulitis is improving with current treatment and patient has no areas of breakdown. Patient denies drainage from blisters. Please re-consult wound care services if needs arise.
--- NOTE | 2016-10-30 13:55 | PCM.PNMED ---
Subjective Date of Service Oct 30, 2016 Subjective Patient was seen and examined at bedside today. Patient denies any chest pain, shortness of breath, nausea, vomiting, diarrhea. Patient states that his left upper extremity pain has improved and the swelling is also improved, the patient does state that he has scaling on the left upper extremity and sometimes it does itch however he states the Bactroban is helping. The patient complains of right nasal congestion. Exam Vital Signs Vital Sign - Last Date Time Temp Pulse Resp B/P Pulse Ox O2 Delivery O2 Flow Rate FiO2 10/30/16 05:29 36.6 62 16 122/70 96 Room Air Intake and Output 10/29/16 10/29/16 10/30/16 Cumulative From/Thru 15:00 23:00 07:00 10/27/16 14:39 - 10/30/16 06:21 Intake Total 1200 ml 800 ml 7420 ml Output Total 1050 ml 3200 ml 8775 ml Balance 150 ml -2400 ml -1355 ml Intake Oral 1200 ml 800 ml 5600 ml IV Total 1820 ml Output Urine Total 1050 ml 3200 ml 8775 ml # Voids 9 # Bowel Movements 2 Exam Physical Exam: GEN: Patient was awake, alert, responding appropriately to questions HEENT: PERRLA, EOMI, Neck soft supple, trachea midline, nomocephalic/atraumatic , right maxillary sinus mild tenderness to palpation CV: +S1/S2, RRR, no murmur auscultated Respiratory: CTAB, no wheezes, rales, rhonchi GI: +bowel sounds x4, soft, compressible, non TTP EXT: no c/c/e of the lower extremity bilaterally, left upper extremity positive excoriations, scaling, minimal edema, mild discoloration Musculoskeletal: AIN/PIN/radius/ulnar nerves intact Neuro: CN II-XII grossly intact Psych: mood and affect were appropriate IVs and Medications Medications Reviewed: Medications were reviewed in detail Lab and Diagnostics Result Diagram: 10/30/1660310/30/16603 X-Rays, CTs and MRIs PROCEDURE: X-RAY CHEST ONE VIEW, PORTABLE ([id number]) INDICATIONS: SHORT OF BREATH TECHNIQUE: One view of the chest was acquired. COMPARISON: None. FINDINGS: Surgical changes and devices: None. Lungs and pleura: No pleural effusions or pneumothorax. Lungs are clear. Mediastinum: Mediastinal contours appear normal. Heart size is normal. Bones and chest wall: No suspicious bony lesions. Overlying soft tissues appear unremarkable. IMPRESSION: No acute cardiopulmonary findings. Dictated by: Nadiya Lind M.D. on 10/27/2016 at 17:23 Assessment & Plan 71-year-old gentleman with no significant past medical history came to emergency room due to progressively worsening left upper extremity painful swelling and redness of which started on Sunday Left upper extremity cellulitis -Patient seems to be responding to IV vancomycin and ceftriaxone, will consider switching the patient to oral antibiotics clindamycin (if patient is MRSA positive) and linezolid -Blood cultures negative 48 hours -Gram stain of the abscess negative -Continue Benadryl for pruritus -Restart Bactroban cream -Consult infectious disease for further recommendation of home medications for treatment of cellulitis Sinusitis -Right maxillary irritation will use [place] at this time twice a day -We will continue to monitor for any further infectious processes Episodes of watery diarrhea,acute,poa, (resolved) -Initial concern was c.diff from multiple abx exposure. resolved yesterday patient continues to have no more episodes dispo: likely 1-2more days pending culture sensitivities diet: general Full code VTE Mechanical Devices: Intermittant Pneumatic CD Time spent Greater than 35 minutes Peg Mercado DO Oct 30, 2016 13:10
[2016-10-30 16:17] VITALS: BP 126/78; PULSE 68; RESP 16; O2SAT 98
[2016-10-30] MEDS: DAPTOmycin Inj 500 MG in 0.9% Sodium Chloride 50 ML IV SCH (16:34)
[2016-10-30] MEDS ORDERED: Sodium Chloride NAS 45 mL Spray NASAL PRN (16:55)
--- NOTE | 2016-10-30 19:47 | NUR ---
New RUE redness During morning assessment, RUE looked a little [place] or flushed, but by afternoon, seemed to look more like a rash. Also has rash-like spot on right shoulder. No swelling, but pt. reports mild itching. Infectious disease MDs present for afternoon assessment and are aware of new onset redness. Will continue to monitor.
--- NOTE | 2016-10-30 21:06 | CONS ---
[address] [address] CONSULTATION REPORT PATIENT: IGOR HARTLEY : 1945 MR#: [id number] ADMIT: 10/27/2016 JOB ID: [id number] DATE OF SERVICE: 10/30/[address] Mercado for this timely consult. REASON FOR CONSULTATION: Bilateral upper extremity inflammatory process. 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 He lives with his significant other on a farm near [place] where they raise their own food including animals and they are often involved in various landscape activities. The patient reports he was in his usual state of actually excellent health until about a week until October 23, one week ago. At that time, he noticed an erythematous, somewhat pruritic, tender patch on his left forearm just below the olecranon. This intensified and then began to spread greatly with erythema and warmth and pruritis extending down towards the wrist and then up towards the shoulder from this initial patch on the left lateral forearm. This led him to seek medical evaluation as an outpatient and he was initially seen in Urgent Care and given clindamycin which did not seem to help much. He then went to the ED where he received two doses of ceftriaxone on consecutive days and then was given Keflex. Despite this, however, the patient actually continued to worsen with increasing erythema of his left upper extremity as well as pruritus and malaise. He also noticed some loose stools and eventually was evaluated and admitted to this facility on October 27. At the time of admission, it was felt this represented a severe left upper extremity cellulitic process involving almost the entire arm except for the hand and extending all the way up towards the left scapula. He was started on antibiotics including vancomycin and ceftriaxone, and there has been some improvement in the left upper extremity erythema, pruritus and swelling, but just today it was noted that he actually has a similar process which has started while he is here in the hospital, occurring on his right upper extremity with some erythema and pruritus involving the forearm and now spreading up the arm all the way to the right scapula. This bizarre sequence of events has occurred without any systemic fevers, chills, sweats, sore throat, cough, or really any overt symptoms. The patient notes that he and his significant other both work in their garden and clearing brush and other activities together and that she has not had any problems like this. 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 As far as he knows, there has been no other unusual exposures in the past couple weeks. PAST MEDICAL HISTORY: None basically. Patient takes no meds and sees no doctor. SOCIAL HISTORY: He drinks one beer a day. He was an ex-smoker and in the very distant past almost 40 years ago apparently experimented with intravenous drugs but not recently. 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 He was living in [place] more recently and in [facility] for almost 20 years. He does not travel widely beyond [facility]. FAMILY HISTORY: Negative for TB in 1st degree relatives. REVIEW OF SYSTEMS: The patient has no significant headache, visual complaints, sore throat, swollen lymph nodes, cough, shortness of breath or chest pain. No nausea, vomiting, diarrhea, dysuria. No swollen joints. No swollen glands or lymph nodes and no neurologic symptoms. Remainder of the review of systems is negative. PHYSICAL EXAMINATION: Reveals an afebrile gentleman who has been afebrile since admission. Temperature 36.6, pulse 62, respiratory rate 16, blood pressure 122/70, saturating well on room air. He is in no acute distress and he appears very healthy. BMI 26, weight 86 kg. Mental status normal. Head without trauma. Eyes without conjunctivitis or scleral icterus. Oral cavity: No thrush or hairy leukoplakia. Neck without adenopathy. Lungs clear. Cardiac tones: Regular rate and rhythm without murmur. Abdomen: Soft and nontender without organomegaly. No suprapubic abnormalities. No Mendoza catheter is present. No synovitis of any joint. He has full range of motion of all joints including both arms and including elbows, shoulders and wrists. The patient is neurologically completely intact. The lower extremities are free of any exanthem. The patient's left upper extremity is notable for an almost confluent erythema which extends from the area of the shoulder down to the wrist diffusely. There is some patchy crusted or residual material present over the forearm, perhaps from the popping of blisters or pustules over the forearm, but this entire area is neither warm nor tender at all. He does not have any axillary adenopathy on either side. On the patient's right arm, there is less significant erythematous papular lesions which cover a significant portion of the forearm and scattered lesions extend all the way up the arm again onto the scapula in the same distribution as on the left lower extremity. This does not have the classic appearance of herpetic or zosteriform-type lesions nor does it appear like cellulitis in that it is neither warm nor particularly tender. LABORATORIES: Include white count 4900. Note that his initial white count had a diff including 10% eos and the 2nd one had 12% eos. His creatinine is 0.57. LFTs normal. Albumin 3.7. Procalcitonin is basically 0 on a single measurement. Toxic urinalysis without white cells. IgE is pending as we just ordered a streptozyme also pending as we just order that. Blood cultures negative. A culture from the arm had no organisms and no growth. The only imaging available is a chest x-ray which is completely normal. IMPRESSION: This is a very strange case. This gentleman who is robust and in good health at the age of 71, developed what sounded like cellulitis of his left upper extremity about a week ago and despite outpatient as well as inpatient therapy, still has diffuse erythema of his left upper extremity extending onto the scapula. This could have the appearance of resolving cellulitis, but the patient has now developed a similar process on the right arm and the diagnosis of a typical bacterial cellulitis no longer makes sense. This does not appear either to be zoster or disseminated herpes simplex. The most likely diagnosis, I believe, is some form of allergic phenomena perhaps secondary to a substance encountered in this process of gardening or food production with animals or plants. The patient came in with a significant eosinophilia which has been persistent, and I strongly suspect this is allergic rather than infectious or traumatic. RECOMMENDATIONS: 1. I would consolidate the vancomycin and ceftriaxone to daptomycin alone for superior bactericidal coverage of both staph and strep which will also just be simpler to administer. 2. We will check an ASO titer as well as serum IgE. 3. A MRSA screen of the nares will be done for completeness's sake. 4. Will re-evaluate this patient tomorrow, but I suspect he can be discharged very soon perhaps with oral or IV antibiotics on an outpatient basis. Plan to follow up in my clinic or the resident clinic regarding his eosinophilia and what appears to be an allergic phenomena.
[2016-10-30 21:40] VITALS: BP 118/69; PULSE 67; RESP 18; O2SAT 97
--- NOTE | 2016-10-31 01:25 | NUR ---
Itching/redness Pt continues to report itching, he states he is itching from the inside out, not just to his left arm. Infectious disease MD is aware of the increase in itching and redness that is spreading in patches to other areas- upper left back, upper right back and still has redness on right arm, left arm is red and warm but swelling has decreased. Pt is tolerating new antibiotic.
[2016-10-31] MEDS ORDERED: Vancomycin Serum Trough XX ONE (05:30)
[2016-10-31 06:03] VITALS: BP 142/63; PULSE 75; RESP 18; O2SAT 96
[2016-10-31 06:57] LABS: Mean Corpuscular Hemoglobin 32.8 pg (27.0-35.0); Mean Corpuscular Volume 95.5 fL (81-100)
[2016-10-31] MEDS ORDERED: hydrOXYzine Pamoate 25 mg Capsule PO PRN (08:50)
--- NOTE | 2016-10-31 11:12 | NUR ---
Social Work Note - Discharge [employer] met with pt - Pt identifies that he is planning to d/c home today. He states that he has his car at the hospital and MD has cleared him to drive home. He has supportive friends who will help him if needed and he will follow up with his PCP next week. No other needs identified. Plan: Home in POV. EMILY Willis
[2016-10-31 11:53] LABS: BASOPHILS % (AUTO) 0.6 % (0-3); EOSINOPHILS % (AUTO) 13.1 % (0-5); NEUTROPHILS % (AUTO) 47.8 % (40-74)
--- NOTE | 2016-10-31 14:05 | PCM.DIMED ---
Discharge Instructions Date of Service Oct 31, 2016 Dates of Hospitalization Oct 27, 2016 at 19:22 Discharge Diagnosis Discharge Diagnosis Cellulitis Allergic Reaction Medication Instructions Please take your full dose of medications please do not save any pills for a later date Diet No restrictions Activity No restrictions Call your provider Fever or Chills, Shortness of breath, Bleeding, Chest pain, Vomitting, Excessive diarrhea Patient Instructions Follow-up plan If this does not improve or completely clear within 1 week or if this starts to worsen please follow up with Dermatology Follow-up Provider: [facility] Follow-up with PCP in: 1 week Peg Mercado DO Oct 31, 2016 14:05
--- NOTE | 2016-10-31 14:09 | PROG NOTE ---
[address] [address] PROGRESS NOTE PATIENT: IGOR HARTLEY : 1945 MR#: [id number] ADMIT: 10/27/2016 JOB ID: [id number] DATE: 10/31/2016 INFECTIOUS DISEASE FOLLOWUP NOTE: REASON FOR FOLLOWUP: Inflammatory reaction left greater than right upper extremity. INTERVAL HISTORY: Overnight, the patient has been free of fevers, chills, or sweats. He has had no cough, shortness of breath, nausea, vomiting, or diarrhea. He has continued to have minimal warmth but itching and redness involving his left lower extremity but to a lesser extent this has also been present on the right side of the body. He notes that the Bactroban he has been applying topically seems to make this process a bit worse if anything rather than better, and also relates to us that his Keflex he was taking as an outpatient gave him a great deal of GI distress. PHYSICAL EXAMINATION: Reveals a comfortable and afebrile gentleman. Temp 36.7, pulse 75, respiratory rate 18, blood pressure 142/63, saturating well on room air. In no acute distress. Oral cavity negative. Mental status is normal. Lungs: Clear. Abdomen: Benign. Left upper extremity still with a patchy papular eruption, which spreads basically from the wrist all the way up to the shoulder up onto the scapula. The right upper extremity is notable for a similar but much less intense process in exactly the same distribution. The arms are not especially warm nor are they tender, and do not have the feel of "cellulitis" but rather a bit more of a bumpy texture and perhaps more consistent with an allergic reaction. There is a certain sponginess to the subcutaneous tissues on the more involved left arm as well. LABORATORIES: Include white count 4800, eosinophils stable at 13% but still quite elevated. Creatinine 0.59. LFT normal. Albumin 4. Urinalysis negative. IgE is markedly elevated at 122. Streptozyme negative at 60. Blood cultures negative. Culture of the arm with no polys, no organisms and negative culture. MRSA screen is pending and should be done shortly. Chest x-ray was normal. IMPRESSION: I do not think that this patient has a significant infection. He has failed to improve with antibiotics, and his rash has spread from the left to the right arm which would not make any sense with respect to any infection of which I am aware. I think this is an allergic phenomena, as evidenced by his high eos and IgE, and I suspect this is secondary to some plant or insect he encountered while gardening, perhaps while carrying something around with both arms. He inoculated both forearms with some foreign substance. RECOMMENDATIONS: 1. I would stop daptomycin and all antibiotics. 2. I think the patient could be discharged at any time. 3. The patient should follow up in the near future on an outpatient basis to make sure this is continuing to improve and if it is not, a course of steroids might be considered, as might a referral to either Derm or Allergy. 4. This case was discussed in person with Dr. Mercado, as well as the patient. 5. Infectious Disease will go ahead and sign off. Thank you very much for involving us in this interesting case.
[2016-10-31] MEDS ORDERED: HYDR-3797 PO (14:11)
--- NOTE | 2016-10-31 15:06 | PCM.DC.MED ---
Discharge Summary Date of Service Oct 31, 2016 Dates of Hospitalization Date of Hospital Admission Oct 27, 2016 at 19:22 Date of Discharge: Oct 31, 2016 Providers: Admitting Physician: Clarence Douglas MD Primary Care Physician: [facility] Attending Physician: Clarence Douglas MD Diagnosis at Time of Discharge Diagnosis at Time of Discharge Cellulitis Allergic Reaction Consultations Infectious disease (Dr. Birmingham) Procedures XRay, CTs & MRIs PROCEDURE: X-RAY CHEST ONE VIEW, PORTABLE ([id number]) INDICATIONS: SHORT OF BREATH TECHNIQUE: One view of the chest was acquired. COMPARISON: None. FINDINGS: Surgical changes and devices: None. Lungs and pleura: No pleural effusions or pneumothorax. Lungs are clear. Mediastinum: Mediastinal contours appear normal. Heart size is normal. Bones and chest wall: No suspicious bony lesions. Overlying soft tissues appear unremarkable. IMPRESSION: No acute cardiopulmonary findings. Dictated by: Nadiya Lind M.D. on 10/27/2016 at 17:23 Brief History 71-year-old gentleman with no significant past medical history came to emergency room due to progressively worsening left upper extremity painful swelling and redness of which started on Sunday. Pain, redness and swelling started on left elbow area and progressively worsened and involved forearm thru wrist and progressed up to shoulder and scapular area. He was initially seen on Sunday at urgent clinic and was prescribed ? clindamycin and borders of cellulitis marked . Area of cellulitis continues to expand which prompted ED visit on Sunday. He was given IV ceftriaxone and prescribed Keflex. He states he could not tolerate Keflex and area of cellulitis continued to progress beyond marked borders which prompted ED visit today. Denies fever. Denies trauma. He is not sure if he had itching. He had 3 episodes of watery diarrhea yesterday. Denies abdominal pain or vomiting ED course: Unremarkable vitals. Left upper extremity cellulitis. Labs unremarkable. IV vancomycin and ceftriaxone started. Hospitalist service requested for admission for cellulitis, failed outpatient treatment. Hospital Course 71-year-old gentleman with no significant past medical history came to emergency room due to progressively worsening left upper extremity painful swelling and redness of which started on Sunday The patient was admitted for cellulitis of the left upper extremity. The cellulitis seems to be responding well to vancomycin and ceftriaxone however infectious disease became involved instead switch the patient to daptomycin. The patient received his doses of daptomycin but then infectious disease felt that there was some drug reaction that was happening to the patient as well. The patient had a positive IgE and eosinophils which pointed this into possibly more of a cellulitis that may have been brought on from itching secondary to an allergic reaction. The patient may have been scratching and open up the skin which then caused a cellulitis. The patient should continue taking doxycycline 100 mg twice a day for the next 6 days until it is finished the patient received 4 days of IV antibiotics while here in the hospital. The patient was also given Vistaril 25 mg every 6 hours to be taken for the itching and rash that has developed. This seems to be an allergic reaction which caused the cellulitis currently unsure of the allergy that the patient may have. The patient will follow-up with the residency clinic and has been instructed that if within the next 7-10 days if the rash does not improve or if it worsens that he should follow-up immediately with dermatology. The patient will follow-up in the residency clinic and will have the rash and cellulitis reevaluated at that time. The patient may need a course of steroids but at this time we will hold off and see if it self resolves. Patient's case was discussed with Dr. Birmingham of infectious disease who agrees with the plan. The patient has been also complaining of sinusitis that is chronic. The patient has been instructed to use sinus rinse daily for the next week. If the patient's symptoms do not resolve he may need to be followed up with ENT. The patient has been treated recently with multiple doses of antibiotics but this seems to coming back. This may be due to an allergy and the patient is unaware or this could possibly be due to a nasal polyp. The patient is being discharged home in stable condition patient will follow-up with the residency clinic in one week. Hospital plan: Left upper extremity cellulitis -Patient seems to be responding to IV vancomycin and ceftriaxone, will consider switching the patient to oral antibiotics clindamycin (if patient is MRSA positive) and linezolid -Blood cultures negative 48 hours -Gram stain of the abscess negative -Continue Benadryl for pruritus -Restart Bactroban cream -Consult infectious disease for further recommendation of home medications for treatment of cellulitis Allergic reaction: -Discontinue Bactroban use -Continue Vistaril 25 mg every 6 -Continue to monitor Sinusitis -Right maxillary irritation will use [place] at this time twice a day -We will continue to monitor for any further infectious processes Episodes of watery diarrhea,acute,poa, (resolved) -Initial concern was c.diff from multiple abx exposure. resolved yesterday patient continues to have no more episodes dispo: likely 1-2more days pending culture sensitivities diet: general Full code Exam Vital Signs (Last) Date Time Temp Pulse Resp B/P Pulse Ox O2 Delivery O2 Flow Rate FiO2 10/31/16 06:03 36.7 75 18 142/63 96 Room Air Exam Physical Exam: GEN: Patient was awake, alert, responding appropriately to questions HEENT: PERRLA, EOMI, Neck soft supple, trachea midline, nomocephalic/atraumatic CV: +S1/S2, RRR, no murmur auscultated Respiratory: CTAB, no wheezes, rales, rhonchi GI: +bowel sounds x4, soft, compressible, non TTP EXT: no c/c/e, left upper extremity cellulitis improved, positive for excoriations which are healing Skin: Macular rash improved from yesterday diffuse on the upper extremities and upper trunk Neuro: CN II-XII grossly intact Psych: mood and affect were appropriate Test 10/27/16 16:55 10/27/16 17:25 10/27/16 18:48 10/29/16 06:25 Lactic Acid Level 1.1mmol/L (0.4-2.0) Hold Blue Top Tube Received (Received) Urine Color Yellow (YELLOW) Urine Appearance Clear (CLEAR,HAZY) Urine pH 6.5 (5.0-8.0) Urine Specific [place] 1.010 (1.003-1.035) Urine Protein Negativemg/dL (NEG,TRACE) Urine Glucose (UA) Negativemg/dL (NEGATIVE) Urine Ketones Negativemg/dL (NEGATIVE) Urine Occult Blood Negative (NEGATIVE) Urine Nitrite Negative (NEGATIVE) Urine Bilirubin Negative (NEGATIVE) Urine Urobilinogen Normalmg/dL (NORMAL) Urine Leukocyte Esterase Negative (NEGATIVE) Urine RBC 0-2/hpf (0-2) Urine WBC 0-5/hpf (0-5) Urine Epithelial Cells Occasional/hpf (NONE-MOD) Urine Crystals None seen (NONE SEEN) Urine Bacteria None/hpf (NONE-FEW) Urine Hyaline Casts None/lpf (NONE) Urine Granular Casts None seen (NONE SEEN) Urine Waxy Casts None seen (NONE SEEN) Urine Red Blood Cell Casts None seen (NONE SEEN) Urine White Blood Cell Casts None seen (NONE SEEN) Urine Mucus None seen (None Seen) Urine Trichomonas None seen (NONE SEEN) Urine Yeast None (NONE SEEN) Urinalysis Comment None Urine Culture Reflexed Not indicated Phosphorus Level 4.0mg/dL (2.5-4.9) Magnesium Level 2.1mg/dL (1.6-2.6) Test 10/29/16 17:04 10/30/16 06:04 10/31/16 06:24 Vancomycin Level Trough 9.2mcg/mL C-Reactive Protein 0.1mg/dL (0.0-0.5) Immunoglobulin E 122IU/mL (0-100) Streptozyme 59.7IU/mL (0.0-200.0) White Blood Count 4.8th/mm3 (3.8-10.1) Red Blood Count 4.21mil/mm3 (4.40-5.80) Hemoglobin 13.8g/dL (13.8-17.2) Hematocrit 40.2% (41.0-50.0) Mean Corpuscular Volume 95.5fL (81-100) Mean Corpuscular Hemoglobin 32.8pg (27.0-35.0) Mean Corpuscular Hemoglobin Concent 34.3% (32.0-37.0) Red Cell Distribution Width 12.1% (12.3-15.4) Platelet Count 183bil/L (150-400) Neutrophils (%) (Auto) 47.8% (40-74) Lymphocytes (%) (Auto) 27.1% (14-46) Monocytes (%) (Auto) 11.0% (4-12) Eosinophils (%) (Auto) 13.1% (0-5) Basophils (%) (Auto) 0.6% (0-3) Sodium Level 139mEq/L (134-144) Potassium Level 4.0mEq/L (3.5-5.2) Chloride Level 102mEq/L (97-108) Carbon Dioxide Level 22mmol/L (18-29) Blood Urea Nitrogen 11mg/dL (8-27) Creatinine 0.59mg/dL (0.76-1.27) Estimat Glomerular Filtration Rate 145mL/min (>59) Glucose Level 96mg/dL (60-99) Calcium Level 8.8mg/dL (8.5-10.1) Total Bilirubin 0.5mg/dL (0.0-1.2) Aspartate Amino Transf (AST/SGOT) 24U/L (0-50) Alanine Aminotransferase (ALT/SGPT) 26U/L (0-44) Alkaline Phosphatase 41U/L (25-160) Total Protein 6.2g/dL (6.4-8.4) Albumin 4.0g/dL (3.4-5.0) Procalcitonin 0.04ng/mL (0.00-0.08) Discharge Medications Discharge Medications ([doxycycline]) 100 MG PO BID Prescribed by: PEG MERCADO DO Ascorbic Acid (Vitamin C) 1,000 Mg Tab.chew 4,000-5,000 MG PO DAILY (Reported) Pyridoxine (Vitamin B-6) 50 Mg Tablet 50 MG PO DAILY (Reported) As needed Hydroxyzine Pamoate (HydrOXYzine Pamoate) 25 Mg Capsule 25 MG PO Q6H PRN PRN Itching and hives Prescribed by: PEG MERCADO DO Additional med instructions Please take your full dose of medications please do not save any pills for a later date Followup Plan Follow-up plan If this does not improve or completely clear within 1 week or if this starts to worsen please follow up with Dermatology Discharge Diet: No restrictions Discharge Activity: No restrictions Follow-up Provider: [facility] Follow-up with PCP in: 1 week Time spent Greater than 35 minute Peg Mercado DO Oct 31, 2016 15:06
[2016-10-31] MEDS: DAPTOmycin Inj 500 MG in 0.9% Sodium Chloride 50 ML IV SCH (15:45)
[2016-10-31] MEDS ORDERED: doxycycline PO (16:31)
--- NOTE | 2016-10-31 19:53 | NUR ---
Discharge Patient discharged home. Patient given scripts for Meds. Patient will follow up at Residency clinic in 1 week. Patient given discharge instructions and agreed to understanding them and said all questions were answered.
== END 2016-10-31 17:38 | disposition home or self-care (01) | DRG 603 ==
LOC: SED 14:09 → OSC 19:22 → SOU 10-31 16:16 → OSC 10-31 16:18
PROVIDERS: ADMIT Internal Medicine; ATTEND Internal Medicine
DX: L03.114 Cellulitis of left upper limb (principal); J32.9 Chronic sinusitis, unspecified; X58.XXXA Exposure to other specified factors, initial encounter; L23.3 Allergic contact dermatitis due to drugs in contact with skin; T49.0X5A Adverse effect of local antifungal, anti-infective and anti-inflammatory drugs, initial encounter; Y92.239 Unspecified place in hospital as the place of occurrence of the external cause; Z88.0 Allergy status to penicillin; Z87.891 Personal history of nicotine dependence